=== PATIENT | male | born 1950 | race Caucasian/White ===

== ENCOUNTER → 2018-08-28 11:26 | Outpatient (CLI) | payer MEDICARE, BC ==
--- NOTE | 2018-09-01 11:12 | ST ---
PATIENT:RAJIV LINARES MEDICAL RECORD: [id number] SEX: M LOCATION:[facility] ORDER #: ADMISSION DATE: 08/28/18 AGE OF PATIENT: 68 REFERRING PHYSICIAN: INTERPRETING PHYSICIAN: HERNANDO BANEAGS MD DATE OF SERVICE: 08/28/2018 TREADMILL STRESS TEST Baseline ECG is normal. He exercised for 7 minutes on Chuck protocol. Maximum heart rate of 153 beats per minute, greater than 85% of max predicted. No ECG changes of ischemia. No symptoms of ischemia. Normal blood pressure response to exercise. No arrhythmias noted. Good exercise tolerance for age. 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
== END | disposition home or self-care (01) ==
LOC: D.HCCARDIO 11:26
PROVIDERS: ATTEND Internal Medicine Interventional Cardiology
DX: I20.9 Angina pectoris, unspecified (principal)